=== PATIENT | female | born 1940 | race Caucasian/White ===

== ENCOUNTER → 2017-04-23 | Outpatient (CLI) | payer OTHER ==
[~2017-04-23] MED LIST: METO100T7 PO; QUIN20TA26 PO
== END | disposition home or self-care (01) ==
LOC: OIH 10:18
PROVIDERS: ATTEND Family Medicine
DX: Z13.6 Encounter for screening for cardiovascular disorders (principal)
CPT/HCPCS: 75571

== ENCOUNTER 2018-07-09 08:39 | Day surgery (SDC) | payer MEDICARE ==
[2018-07-07 16:00] VITALS: BP 129/44
[2018-07-07 16:30] LABS: BASOPHILS % (AUTO) 1.6 % (0.0-5.0); EOSINOPHILS % (AUTO) 1.2 % (0.0-8.0); HEMATOCRIT 43.9 % (36-48); MEAN CORPUSCULAR HEMOGLOBIN 30.3 pg (27.0-33.0); MEAN CORPUSCULAR HGB CONC 33.1 g/dL (32.0-36.0); MEAN CORPUSCULAR VOLUME 91.5 fL (79-99); MONOCYTES % (AUTO) 14.4 % (3.0-13.0); NEUTROPHILS % (AUTO) 62.8 % (40.0-77.0); NUCLEATED RED BLOOD CELLS 0.1 % (0.0-0.19); PLATELET COUNT (AUTO) 222 K/uL (130-400); WHITE BLOOD COUNT (AUTO) 5.1 K/uL (4.8-10.8)
[2018-07-07 17:10] LABS: CREATININE 0.8 mg/dL (0.5-1.5); POTASSIUM 4.8 mmol/L (3.5-5.1)
--- NOTE | 2018-07-07 17:45 | NUR ---
ABNORMAL EKG CALLED PATIENT TO SEE IF SHE HAS A RESIDENTIAL PEST CONTROL TECHNICIAN. SAID SHE IS SCHEDULED TO SEE DR. NEFF IN JULY. SAID WAS SEEN IN THE ER 2 WEEKS AGO FOR ABDOMINAL PAIN AND WAS TOLD SHE HAD AN IRREGULAR HEART. PATIENT STATED SHE IS NOT CERTAIN THAT DR. MELENDREZ IS AWARE OF ABNORMAL EKG. ADVISED PATIENT WE WOULD BE CALLING DR. MELENDREZ IN THE AM TO NOTIFY HER AND ALSO WOULD BE CALLING HER(PATIENT) TO LET HER KNOW OF OUTCOME. VERBALIZED UNDERSTANDING.
[2018-07-08] MEDS: CEFTRIAXONE SODIUM 1 GM IVP SCH (08:45)
--- NOTE | 2018-07-08 09:43 | NUR ---
NOTIFIED DR. MELENDREZ OF ABNORMAL EKG DONE YESTERDAY AND OF PT PENDING CARDIOLOGY TO SEE HER IN 07/2018. PER DR. MELENDREZ OK FROM HER SIDE OF PINT TO CONTINUE WITH SURGERY SINCE PT DOES NOT REPORT ANY SYMPTOMS. TO LET DR. AUGUSTIN ANESTHESIA OF ABNORMAL EKG AND PENDING CARDIOLOGY VISIT. AND IF HE IS OK WITH HIM TO PROCEED THEN IT OK WITH HER. CALLED DR. AUGUSTIN CALLED, REPORT GIVEN ON PT, PER DR. AUGUSTIN OK TO PROCEED WITH PROCEDURE TOMORROW. CALLED DR. MELENDREZ OFFICE LEFT MESSAGE WITH MECHELLE THAT DR. AUGUSTIN SAID OK TO PROCEED. NOTIFIED PT THAT PROCEDURE WILL BE DONE TOMORROW. PT DENIES FEELING SICK OR ANY SYMPTOMS OR DISCOMFORT.
[2018-07-09] VITALS (17 sets, daily range): BP systolic 133–154; BP diastolic 55–85
[~2018-07-09] VITALS: Ht 177.8 cm; Wt 74.7 kg
[~2018-07-09 08:39] MED LIST changes: +LISI10TA7 PO; -QUIN20TA26 PO; +TAMS-1 PO
[2018-07-09] MEDS ORDERED: IOHEXOL-350 50ML VIAL IV ONE (08:46)
[2018-07-09] MEDS ORDERED: LACTATED RINGERS 1000ML 1,000 ML IV ONE (09:29)
[2018-07-09] MEDS ORDERED: MIDAZOLAM HCL 1 MG/ML 2ML VIAL ONE (09:44)
[2018-07-09] MEDS ORDERED: PROPOFOL 10 MG/ML 20ML VIAL IV ONE (09:44)
[2018-07-09] MEDS ORDERED: FENTANYL CITRATE PF 50 MCG/1 ML 2ML VIAL ONE (09:44)
[2018-07-09] MEDS ORDERED: LIDOCAINE PF 2% 5ML ABBOJECT ONE (09:46)
[2018-07-09] MEDS ORDERED: ONDANSETRON HCL 4 MG/2 ML VIAL ONE (09:47)
[2018-07-09] MEDS ORDERED: DEXAMETHASONE SOD PHOSPHATE 10MG/ML 1ML VIAL ONE (09:47)
[2018-07-09] MEDS: CEFTRIAXONE SODIUM 1 GM IVP SCH (09:55)
[2018-07-09] MEDS ORDERED: PHENAZOPYRIDINE HCL 200 MG TABLET ONE (11:37)
== END 2018-07-09 12:30 | disposition home or self-care (01) ==
LOC: DAH 08:39
PROVIDERS: ATTEND Urology
DX: N13.2 Hydronephrosis with renal and ureteral calculous obstruction (principal); K21.9 Gastro-esophageal reflux disease without esophagitis; I10 Essential (primary) hypertension; J45.909 Unspecified asthma, uncomplicated; G51.0 Bell's palsy; I48.91 Unspecified atrial fibrillation; Z85.42 Personal history of malignant neoplasm of other parts of uterus; Z79.899 Other long term (current) drug therapy
CPT/HCPCS: 36415; 52332; 74420; 80048; 85025; 93005; A4358; A4450; A4510; A4600; A6207; C1758; C1769; C2617; J0696; J1100; J2001; J2250; J2405; J2704; J3010; J7120 ×2; Q9967

== ENCOUNTER 2018-07-21 05:49 | Day surgery (SDC) | payer MEDICARE ==
[2018-07-19 13:12] LABS: BASOPHILS % (AUTO) 0.9 % (0.0-5.0); EOSINOPHILS % (AUTO) 1.9 % (0.0-8.0); LYMPHOCYTES % (AUTO) 20.2 % (21.0-51.0); MEAN CORPUSCULAR HEMOGLOBIN 30.2 pg (27.0-33.0); MEAN CORPUSCULAR HGB CONC 33.1 g/dL (32.0-36.0); MEAN CORPUSCULAR VOLUME 91.2 fL (79-99); MONOCYTES % (AUTO) 17.5 % (3.0-13.0); NEUTROPHILS % (AUTO) 59.5 % (40.0-77.0); PLATELET COUNT (AUTO) 116 K/uL (130-400); WHITE BLOOD COUNT (AUTO) 4.1 K/uL (4.8-10.8)
[2018-07-19 13:17] LABS: CREATININE 0.6 mg/dL (0.5-1.5); POTASSIUM 4.9 mmol/L (3.5-5.1)
[2018-07-19 13:32] VITALS: BP 120/49
[2018-07-19 14:24] LABS: PLATELET MORPHOLOGY COMMENT SLIGHTLY DECREASED
--- NOTE | 2018-07-20 14:20 | NUR ---
LAB MESSAGE LEFT WITH [employer] FOR DR. VEGA ABOUT LOW PLT 116, AND ALSO INFORMED THAT PATIENT DOESN'T CONSENT FOR BLOOD TRANFUSION IN CASE OF AN EMERGENCY. AWAITING FOR FURTHER ORDERS
--- NOTE | 2018-07-20 14:44 | NUR ---
LABS ORDERS RECEIVED TO REPEAT CBC DAY OF SURGERY, DUE TO LOW PLT COUNT,
[~2018-07-21] VITALS: Ht 177.8 cm; Wt 73.4 kg
[2018-07-21] VITALS (10 sets, daily range): BP systolic 114–134; BP diastolic 55–78
[~2018-07-21 05:49] MED LIST changes: -TAMS-1 PO
[2018-07-21] MEDS: CEFAZOLIN SODIUM 1 GM VIAL IVP SCH ×2 (06:00→07:30)
[2018-07-21] MEDS ORDERED: LACTATED RINGERS 1000ML 1,000 ML IV ONE (06:09)
[2018-07-21] MEDS ORDERED: LIDOCAINE HCL MDV 0.5% 50ML VIAL IJ ONE (07:18)
[2018-07-21] MEDS ORDERED: MIDAZOLAM HCL 1 MG/ML 2ML VIAL ONE (07:21)
[2018-07-21] MEDS ORDERED: FENTANYL CITRATE PF 50 MCG/1 ML 2ML VIAL ONE (07:21)
[2018-07-21 08:23] LABS: BASOPHILS % (AUTO) 0.6 % (0.0-5.0); EOSINOPHILS % (AUTO) 2.3 % (0.0-8.0); HEMATOCRIT 40.6 % (36-48); LYMPHOCYTES % (AUTO) 27.7 % (21.0-51.0); MEAN CORPUSCULAR HEMOGLOBIN 30.5 pg (27.0-33.0); MEAN CORPUSCULAR HGB CONC 33.5 g/dL (32.0-36.0); MEAN CORPUSCULAR VOLUME 91.1 fL (79-99); MONOCYTES % (AUTO) 15.4 % (3.0-13.0); NUCLEATED RED BLOOD CELLS 0.1 % (0.0-0.19); PLATELET COUNT (AUTO) 105 K/uL (130-400); RED BLOOD CELL COUNT(AUTO) 4.46 MIL/uL (4.00-5.50); WHITE BLOOD COUNT (AUTO) 4.9 K/uL (4.8-10.8)
--- NOTE | 2018-07-21 08:43 | NUR ---
ASSESSMENT RECEIVED PT FROM PACU STAFF Chau ROBERT RN. PT [id number]. DRSG TO LEFT HAND DRY AND INTACT. NO BLEEDING, OOZING NOTED TO SITE. DAUGHTER AT BEDSIDE.
--- NOTE | 2018-07-21 09:25 | NUR ---
DISCHARGE ORAL AND WRITTEN DISCHARGE INSTRUCTIONS GIVEN TO PT AND PTS DAUGHTER ALONG WITH PRESCRIPTION. NO OTHER QUESTIONS AT THIS TIME. STAPLE REMOVAL KIT GIVEN TO PTS DAUGHTER TO TAKE TO POST OP APPT. BOTH VERBALIZED UNDERSTANDING.
== END 2018-07-21 09:35 | disposition home or self-care (01) ==
LOC: SUH 05:49 → DAH 05:49 → SUH 09:35
PROVIDERS: ATTEND Neurological Surgery
DX: G56.02 Carpal tunnel syndrome, left upper limb (principal); G62.9 Polyneuropathy, unspecified
CPT/HCPCS: 36415 ×2; 64721; 80048; 85025 ×2; J0690; J2250; J3010; J3490; J7120